=== PATIENT | female | born 1965 | race Asian ===

== ENCOUNTER 2018-10-21 16:51 | Emergency (ER) | payer BC ==
[~2018-10-21] VITALS: Ht 160 cm; Wt 50.8 kg
[2018-10-21 16:54] VITALS: BP_SYST 163
[2018-10-21] MEDS ORDERED: IBUPROFEN 800 MG TABLET PO ONE (18:15)
[2018-10-21 18:16] VITALS: BP_SYST 163
== END 2018-10-21 18:18 | disposition home or self-care (01) ==
LOC: SED 16:51
DX: S93.401A Sprain of unspecified ligament of right ankle, initial encounter (principal); R03.0 Elevated blood-pressure reading, without diagnosis of hypertension; X50.9XXA Other and unspecified overexertion or strenuous movements or postures, initial encounter; Y93.01 Activity, walking, marching and hiking; Y92.89 Other specified places as the place of occurrence of the external cause; Y99.8 Other external cause status
CPT/HCPCS: 99283

== ENCOUNTER 2020-06-05 03:04 | Observation (INO) | payer BC ==
[~2020-06-05] VITALS: Ht 160 cm; Wt 43.1 kg
[2020-06-05 03:04] VITALS: BP_SYST 159
[2020-06-05] MEDS ORDERED: ASPIRIN 81 MG TAB.CHEW PO ONE (03:15)
[2020-06-05 04:22] LABS: HEMOGLOBIN 15.7 g/dL (12.0-16.0)
[2020-06-05 04:28] LABS: HEMATOCRIT 47.1 % (36-48); MEAN CORPUSCULAR HEMOGLOBIN 31 pg (27-31); MEAN CORPUSCULAR HGB CONC 33 % (32-36); MEAN CORPUSCULAR VOLUME 94 fL (79.0-98.0); PLATELET COUNT (AUTO) 214 K/uL (130-430); RED CELL DISTRIBUTION WIDTH 13.1 % (9.0-15.0); WHITE BLOOD COUNT (AUTO) 3.4 K/uL (4.8-10.8)
[2020-06-05 04:34] LABS: CALCIUM 9.9 mg/dL (8.4-11.0); CREATININE 0.6 mg/dL (0.55-1.30); POTASSIUM 3.1 mmol/L (3.5-5.1)
[2020-06-05 04:36] LABS: ATYPICAL LYMPHOCYTES % 0 % (0-0); BAND % (MANUAL) 0 % (0-6); BASOPHILS % (MANUAL) 0 % (0-2); EOSINOPHILS % (MANUAL) 2 % (0-7); LYMPHOCYTES % (MANUAL) 40 % (20-46); MONOCYTES % (MANUAL) 8 % (0-11)
[2020-06-05 04:39] LABS: TOTAL BILIRUBIN 0.7 mg/dL (0.0-1.0)
[2020-06-05] MEDS ORDERED: fentaNYL CITRATE/PF 100 MCG/2 ML AMP IVP ONE (06:15)
[2020-06-05] MEDS ORDERED: LORazepam 2 MG/ML VIAL IVP PRN (08:30)
[2020-06-05] MEDS ORDERED: MORPHINE 2 MG/ML INJ. SYRINGE IVP PRN (08:30)
[2020-06-05 08:45] VITALS: BP_SYST 156
[2020-06-05] MEDS ORDERED: POTASSIUM CHLORIDE 20 MEQ TAB.PRT.SR PO ONE (10:00)
[2020-06-05] MEDS: ASPIRIN 81 MG TAB.CHEW PO SCH (10:14)
[2020-06-05 12:12] LABS: POTASSIUM 3.4 mmol/L (3.5-5.1)
[2020-06-05 13:34] VITALS: BP_SYST 141
[2020-06-05] MEDS: ACETAMINOPHEN 325 MG TABLET PO PRN ×2 (16:11→20:36)
[2020-06-05 16:22] VITALS: BP_SYST 137
[2020-06-05 20:00] VITALS: BP_SYST 139
[2020-06-06] VITALS: BP_SYST 135
[2020-06-06 08:00] VITALS: BP_SYST 156
[2020-06-06] MEDS: ASPIRIN 81 MG TAB.CHEW PO SCH (09:13)
[2020-06-06] MEDS ORDERED: METOPROLOL SUCCINATE 25 MG TAB.SR.24H (TOPROL XL) PO ONE (11:30)
[2020-06-06 12:08] VITALS: BP_SYST 153
[2020-06-06 13:07] VITALS: BP_SYST 138
[2020-06-06] MEDS ORDERED: METO25TA6 PO (15:06)
[2020-06-06] MEDS ORDERED: ASPI-989 PO (15:06)
[2020-06-06 16:00] VITALS: BP_SYST 138
[2020-06-07] MEDS ORDERED: METOPROLOL SUCCINATE 25 MG TAB.SR.24H (TOPROL XL) PO SCH (09:00)
== END 2020-06-06 16:25 | disposition home or self-care (01) ==
LOC: SED 03:04 → STU 06:24 → INTOOBSV 06:24 → STU 07:43
PROVIDERS: ADMIT Internal Medicine Hospice and Palliative Medicine; ATTEND Internal Medicine Hospice and Palliative Medicine
DX: R07.89 Other chest pain (principal); I10 Essential (primary) hypertension; F41.9 Anxiety disorder, unspecified; R79.89 Other specified abnormal findings of blood chemistry; K21.9 Gastro-esophageal reflux disease without esophagitis
CPT/HCPCS: 36415; 71045; 80053; 80061; 83880; 84132-TC; 84484; 85007; 85027; 85379; 85651-TC; 86038; 93005; 93306; 96374; 99285; G0378; J3010